=== PATIENT | female | born 1990 | race Caucasian/White ===

== ENCOUNTER 2019-06-03 00:03 | Inpatient (IN) ==
[2019-06-03] MEDS ORDERED: LIDOCAINE HCL 50 ML VIAL PERI PRN (00:13)
[2019-06-03] MEDS ORDERED: RINGER'S SOLUTION,LACTATED 1,000 ML IV ONE (00:13)
[2019-06-03] MEDS ORDERED: OXYTOCIN/DEXTROSE 5%-WATER 30 UNITS/500 ML BAG IV ONE ×2 (00:13→08:11)
[2019-06-03] MEDS ORDERED: BUTORPHANOL TARTRATE 2 MG/ML VIAL IV PRN ×2 (00:13)
[2019-06-03] MEDS ORDERED: ONDANSETRON 4 MG TAB.RAPDIS PO PRN (00:13)
[2019-06-03] MEDS ORDERED: RINGER'S SOLUTION,LACTATED 1,000 ML IV PRN (00:13)
[2019-06-03] MEDS ORDERED: CALCIUM CARBONATE 500 MG TAB.CHEW PO ONE (02:06)
[2019-06-03 02:58] LABS: Cocaine Ur Negative (NEGATIVE); Urine Barbiturate Negative (NEGATIVE); Urine Benzodiazepines Negative (NEGATIVE); Urine Opiates Negative (NEGATIVE); Urine PCP Negative (NEGATIVE); Urine THC Negative (NEGATIVE)
--- NOTE | 2019-06-03 03:48 | HP ---
Chief Complaint - Chief Complaint Date of Service: 06/03/19 Time of Service: 03:44 Chief Complaint: Induction History of Present Illness: 28 year old at 39w 0d who presents for an elective IOL. She reports regular ctx. She denies vb or lof. Fetus is active. Medical History (Last Reviewed 06/03/19 @ 03:44 by Rachel Pelayo MD) Anemia Anxiety Bipolar disorder Depression hospitalized x 9 days Hx of migraines History of chlamydia infection Onset Date: ~2015 hemorrhage Onset Date: ~06/2017 Asthma no problems recently, no inhalers at this time Surgical History: Surgical History (Last Reviewed 06/03/19 @ 03:44 by Rachel Pelayo MD) History of wisdom tooth extraction Family History: Family History (Last Reviewed 06/03/19 @ 03:45 by Rachel Pelayo MD) Mother Diabetes Myocardial infarction, Onset Age: 50 Father Diabetes Depression Daughter DiGeorge syndrome Defect of chromosome 22 Brother DiGeorge syndrome Grandfather Colon cancer Paternal Grandmother Colon cancer Paternal Grandfather Colon cancer Maternal Grandmother Colon cancer Maternal Other Heart murmur Social History: (Last Reviewed 06/03/19 @ 03:45 by Rachel Pelayo MD) Social History: adopted: No Marital status: Single household members: significant other current occupational status: unemployed current occupational exposures/hazards: No Highest education level completed: high school graduate Service: No Tobacco: Smoking Status: Former smoker Alcohol: alcohol intake: never Substance Use: substance use type: does not use Dietary Habits: caffeine: Yes caffeine comment: 1-2 Type: carbonated beverages Review Of Systems (GEN) - Review of Systems Generalized/Overall Review: Present: Malaise. Absent: Chills, Fever Respiratory: Present: Cough. Absent: Shortness of Breath, Wheezing Cardiac: Present: No Symptoms Reported. Absent: Chest Pain Abdominal: Present: Vomiting. Absent: Nausea, Diarrhea Genitourinary: Present: No Symptoms Reported Musculoskeletal: Present: No Symptoms Reported Neurological: Present: No Symptoms Reported Skin: Present: No Symptoms Reported Endocrine: Present: No Symptoms Reported Immunizations: IMMUNIZATION HX Immunizations Up to Date Yes History of Influenza Vaccine Yes Hx Pneumococcal Vaccination No Allergies/Adverse Reactions: Allergies Allergy/AdvReac Type Severity Reaction Status Date / Time Latex, Natural Rubber Allergy Verified 06/03/19 00:21 peanut Allergy Verified 06/03/19 00:21 Home Medications: HOME MEDICATIONS Ferrous Sulfate [Iron] 325 mg PO TID 04/12/19 [Last Taken 05/28/19] Vits96/Iron Fum/Folic [ S] 1 tab PO DAILY 05/22/19 [Last Taken 05/23/19] metronidazole 500 mg tablet 500 mg PO BID 05/27/19 [Last Taken 05/28/19] Exam - Exam Vital Signs: Vital Signs - Last Taken Temp 36.5 C 06/03/19 02:55 Pulse 111 H 06/03/19 02:55 Resp 18 06/03/19 02:55 BP 108/72 06/03/19 02:55 Pulse Ox 98 06/03/19 02:55 Constitutional: Present: Alert, Oriented x3, Cooperative, No distress ENT Exam: Present: hearing grossly normal Breasts: Present: Exam deferred Respiratory: Present: lungs clear, normal breath sounds Cardiovascular/Chest: Present: regular rate, rhythm Abdomen: Present: soft, nontender, nondistended /Rectal: Present: Other - 4/60/-2 AROM for a large amount of clear fluid Extremity: Present: non-tender, no calf tenderness Skin Exam: Present: normal color, warm/dry, no cyanosis Appearance: Present: appropriate appearance Eye contact: Present: cooperative Thoughts: Present: normal thought pattern Diagnostic Studies: Laboratory Results Urine Opiates Screen Negative (NEGATIVE) 06/03/19 02:26 Barbiturate Screen Negative (NEGATIVE) 06/03/19 02:26 Ur Phencyclidine Scrn Negative (NEGATIVE) 06/03/19 02:26 Urine Amphetamine Negative (NEGATIVE) 06/03/19 02:26 U Benzodiazepines Scrn Negative (NEGATIVE) 06/03/19 02:26 Urine Cocaine Screen Negative (NEGATIVE) 06/03/19 02:26 Urine Marijuana (THC) Negative (NEGATIVE) 06/03/19 02:26 Blood Type B Negative 06/03/19 00:13 Antibody Screen Negative 06/03/19 00:13 Assessment/Plan - Narrative Narrative: 28 year old at 39w 0d Induction of labor: patient currently on 6 milliunits of pitocin. AROM for clear fluid GBS negative: prophylaxis not indicated
[2019-06-03] MEDS ORDERED: ONDANSETRON HCL/PF 2 MG/ML VIAL IV PRN (03:57)
[2019-06-03] MEDS ORDERED: NALOXONE HCL 1 MG/1 ML SYRG IV PRN (03:57)
[2019-06-03] MEDS ORDERED: BUPIVACAINE HCL/0.9 % NACL/PF 250 ML EP PRN (03:57)
[2019-06-03] MEDS ORDERED: fentaNYL CITRATE/PF 50 MCG/ML AMPUL IT SCH (04:00)
--- NOTE | 2019-06-03 04:21 | ANES ---
Anesthesia Pre Procedure Eval Vitals/Labs: Last Vital Signs Temp 36.5 C 06/03/19 02:55 Pulse 111 H 06/03/19 02:55 Resp 18 06/03/19 02:55 BP 108/72 06/03/19 02:55 Pulse Ox 98 06/03/19 02:55 HOME MEDICATIONS Ferrous Sulfate [Iron] 325 mg PO TID 04/12/19 [Last Taken 05/28/19] Vits96/Iron Fum/Folic [ S] 1 tab PO DAILY 05/22/19 [Last Taken 05/23/19] metronidazole 500 mg tablet 500 mg PO BID 05/27/19 [Last Taken 05/28/19] Allergies/Adverse Reactions: Allergies Allergy/AdvReac Type Severity Reaction Status Date / Time Latex, Natural Rubber Allergy Verified 06/03/19 00:21 peanut Allergy Verified 06/03/19 00:21 - Planned Procedure Planned Procedure: ELECTIVE INDUCTION 39 WEEKS Medication List Reviewed:: Yes Allergies Verified: Yes Medical History (Last Reviewed 06/03/19 @ 04:20 by Ten Hinds CRNA) Anemia Anxiety Bipolar disorder Depression hospitalized x 9 days Hx of migraines History of chlamydia infection Onset Date: ~2015 hemorrhage Onset Date: ~06/2017 Asthma no problems recently, no inhalers at this time Surgical History (Last Reviewed 06/03/19 @ 04:20 by Ten Hinds CRNA) History of wisdom tooth extraction Family History (Last Reviewed 06/03/19 @ 04:20 by Ten Hinds CRNA) Mother Diabetes Myocardial infarction, Onset Age: 50 Father Diabetes Depression Daughter DiGeorge syndrome Defect of chromosome 22 Brother DiGeorge syndrome Grandfather Colon cancer Paternal Grandmother Colon cancer Paternal Grandfather Colon cancer Maternal Grandmother Colon cancer Maternal Other Heart murmur - Family Anesthesia History Family History:: no untoward family reactions to anesthesia, no familial bleeding tendencies, no family history of clotting disorders, no family history of premature - Airway/Neck/Teeth Within Normal Limits:: Yes Teeth Condition: intact Neck Exam: full range of motion Mallampatti Score: 2 Thyromental (T-M) distance: > 6 cm Mandibulo Hyoid distance: > 3 cm - Respiratory Respiratory History: asthma Sleep Apnea currently treated: No Sleep Apnea by current assessment: No - Cardiovascular Tolerate Activity: Fair Heart Sounds: S1 & S2, Regular - Anesthesia Assessment and Plan ASA Class: PS, II, E Anesthesia Type Plan: Epidural - CSE for labor analgesia
--- NOTE | 2019-06-03 04:47 | ANES ---
Post Anesthesia Discharge - Transfer of Care Transfer of Care handoff given to nurse: Yes - Discharge from PACU Discharge from PACU when meets criteria: Yes - Comfortable after CSE.
--- NOTE | 2019-06-03 04:51 | ANES ---
Anesthesia Procedure Note Procedure Note: ANESTHESIA PROCEDURE NOTE Date of Procedure: [06/03/2019 Time of procedure: 4:25 AM. Performed by: JOSE CRUZ Paul CRNA, MSN Early Childhood Coordinator: Kisha Barakat RN. Preprocedure diagnosis: Active labor, labor pain. Post procedure diagnosis: Same. Procedure:Epidural for labor analgesia L4-5. Indications: Labor pain. Findings: See below. Details of the procedure: The patient was placed on the side of the bed in sitting positionand prepped with DuraPrep then draped in a sterile fashion. Lidocaine 1% was infiltrated to the skin and subcutaneous tissues at the level of the L4-5 interspace. Ms. Plasencia was very anxious and had a difficult time maintaining a constant position. At one point and reaction to injection of local anesthesia, she moved in such a way to because the epidural needle to roll into an unsterile area. After a new kit was obtained and opened, through constant coaching, she was able to maintain a stable enough position to proceed with the epidural placement. An 18-gauge Touhy needle was used to approach the epidural space with loss of resistance technique. Once loss of resistance was achieved a 27-gauge spinal needle was passed through the epidural needle and CSF was contacted. After CSF returned, 20 mcg of fentanyl was injected in the spinal needle was removed the epidural catheter was then threaded approximately 4 cm in the epidural needle was removed. The catheter was taped in place and after careful aspiration 3 mL of 1.5% lidocaine with 1-200,000 epinephrine was injected without change in maternal heart rate or sensorium. . EBL: Minimal. Fluids: N/A. Specimen: N/A. Post procedure condition: The patient tolerated the procedure well with good r elief. No complications were noted. Thank you for this consultation. Ten Hinds CRNA, ARNP, MSN
--- NOTE | 2019-06-03 04:58 | ANES ---
Post Anesthesia Assessment - Vital Signs Vitals: Last Vital Signs Temp 36.5 C 06/03/19 02:55 Pulse 111 H 06/03/19 02:55 Resp 18 06/03/19 02:55 BP 108/72 06/03/19 02:55 Pulse Ox 98 06/03/19 02:55 Airway Patency: Normal - Mental Status Level Of Consciousness: Awake, Alert, Appropriate - Pain Level Pain Score: 0 - N/V Assessment Nausea/Vomiting Presence: None Dehydration:: No
--- NOTE | 2019-06-03 08:10 | OR ---
Operative Report - Dictated Report Narrative: Date of delivery: 06/03/2019 Time of delivery: 0755 Gender: male weight: 3666 grams APGARS: 02/04 Procedure: Description of the procedure: The patient is a 28 year old at 39w 0d who presented for an elective IOL. She was started on pitocin and AROM for clear fluid. The patient progressed to complete dilation. She delivered a viable male infant in the direct OA presentation. The shoulders delivered without difficulty followed by the rest of the . Cord clamping was delayed. The placenta was delivered by expression and appeared intact. There was a first degree perineal laceration which was not repaired because it was hemostatic. EBL: 200 mL Complications: none History for MU Definition: * The number of deliveries resulting in a live the patient experienced prior to current hospitalization * The previous delivery of live twins or any live multiple gestation is considered one live event. *If primagravida or nulliparous is documented select zero for the number of previous live births. Live Events: 2
[2019-06-03] MEDS ORDERED: oxyCODONE HCL/ACETAMINOPHEN 1 TAB TABLET PO PRN (08:11)
[2019-06-03] MEDS ORDERED: BISACODYL 10 MG SUPP.RECT RC PRN (08:11)
[2019-06-03] MEDS ORDERED: BENZOCAINE/MENTHOL 81 SPRAY CAN TP PRN (08:11)
[2019-06-03] MEDS ORDERED: diphenhydrAMINE HCL 25 MG CAPSULE PO PRN (08:11)
[2019-06-03] MEDS ORDERED: HYDROCORTISONE 30 APPL TUBE TP PRN (08:11)
[2019-06-03] MEDS ORDERED: GLYCERIN/WITCH HAZEL LEAF 40 APPL BOX TP PRN (08:11)
[2019-06-03] MEDS ORDERED: SENNOSIDES 8.6 MG TABLET PO PRN (08:11)
[2019-06-03] MEDS ORDERED: MISOPROSTOL 200 MCG TABLET RC ONE (10:17)
[2019-06-03] MEDS: DOCUSATE SODIUM 100 MG CAPSULE PO SCH ×2 (10:18→20:45)
[2019-06-03] MEDS: IBUPROFEN 800 MG TABLET PO PRN ×2 (11:09→20:46)
[2019-06-03] MEDS ORDERED: RHO(D) IMMUNE GLOBULIN 1,500 UNIT SYRINGE IM ONE (14:42)
[2019-06-03] MEDS: valACYclovir HCL 500 MG TABLET PO SCH (20:45)
--- NOTE | 2019-06-04 08:32 | PN ---
Subjective - Date and Time Seen Date: 06/04/19 Time: 08:31 Subjective Narrative: Patient without complaints Objective Objective Narrative: See vital signs - Vitals Vitals: Last Vital Signs Temp 36.2 C 06/03/19 13:10 Pulse 102 H 06/03/19 18:28 Resp 18 06/03/19 18:28 BP 102/55 06/03/19 18:28 Pulse Ox 97 06/03/19 18:28 - Exam Constitutional: Present: Alert, Oriented x3, Cooperative, No distress Abdomen: Present: soft, nontender, nondistended - fundus is firm Extremity: Present: non-tender, no calf tenderness Skin Exam: Present: normal color, warm/dry, no cyanosis Appearance: Present: appropriate appearance Eye contact: Present: cooperative Thoughts: Present: normal thought pattern Cauti Physician Documentation - Urinary Catheter Management Urethral (Snyder) Urethral Indwelling: No Date of Insertion: 06/03/19 Time of Insertion: 05:00 Assessment/Plan Plan Narrative: PPD 1 s/p Doing well Discharge tomorrow
--- NOTE | 2019-06-04 10:44 | PN ---
Progess Note - Interim Date: 06/04/19 Time: 10:42 Narrative: 06/04/19 10:43 The patient's baby will be transferred to [facility] so will discharge the patient since she is doing well Give Depo-Provera prior to discharge Follow-up in 4 weeks or sooner for any other concerns
[2019-06-04] MEDS: IBUPROFEN 800 MG TABLET PO PRN (11:06)
[2019-06-04] MEDS: DOCUSATE SODIUM 100 MG CAPSULE PO SCH (11:06)
[2019-06-04] MEDS: valACYclovir HCL 500 MG TABLET PO SCH (11:08)
[2019-06-04] MEDS ORDERED: MEDROXYPROGESTERONE ACET 150 MG/ML SYRG IM ONE (11:30)
[2019-06-04 12:23] VITALS: BP 111/70
== END 2019-06-04 15:30 | disposition home or self-care (01) | DRG 807 ==
LOC: OB 00:03
PROVIDERS: ADMIT Obstetrics & Gynecology; ATTEND Obstetrics & Gynecology
CPT/HCPCS: 59025; 80307; 85460; 86850; J2790